=== PATIENT | female | born 1950 | race Caucasian/White ===

== ENCOUNTER → 2019-03-15 | Outpatient (CLI) | payer MEDICARE, OTHER ==
[~2019-03-15] MED LIST: ADVIL200 MG PO; AMBIEN 10MG10 MG PO; ASPIRIN E.C. 8181 MG PO; B-12 100 MCG PO; BIOTIN2500 MCG PO; CAL-CITRATE PLU1 TAB PO; CALCIUM 600MG+D1 TAB PO; CALCIUM CITRATE1 TA1 PO; CARAFATE S1 GM/10 ML PO; CARDI-OMEGA1000 MG PO; CELEXA 20MG20 MG/TAB PO; CEPHALEXIN500 M1 PO; COZAAR100 MG PO; CRESTOR20 MG PO; CURCUMIN95% PO; CYMBALTA 60MG60 MG PO; FISH OIL1 IU PO; FLAX SEED OIL1000 MG PO; HEMP OIL PO; KRILL OIL 5001 EACH PO; LEVOXYL0.05 MG PO; LEVOXYL0.075 MG PO; LEVOXYL0.112 MG PO; MULTI VITAMINS1 TAB PO; NEURONTIN300 MG/CAP PO; NORVASC 10MG10 MG PO; PERCOCET 325 MG1 TA2 PO; PROBIOTIC-MAJOR PO; PROTONIX 40MG T40 MG PO; RESTASIS0.05% IO; SALAGEN 5MG TAB5 MG PO; SENNA8.6 MG PO; SYNTHROID0.075 MG/T PO; ULTRAM 50MG TAB50 MG PO; VITAMIN C500 MG PO; VITAMIN E 400 U4001 PO; XANAX 0.5MG0.5 MG PO; ZANTAC 150MG T150 MG PO; ZOCOR 20MG20 MG PO; ZOFRAN ODT4 MG PO; [UNRECOGNIZED DRUG - OTHER]
[2019-03-15 12:42] VITALS: BP 122/71; PULSE 69
[2019-03-15 14:03] VITALS: BP 144/78; PULSE 59
[2019-03-15 14:11] VITALS: BP 140/74
== END ==
LOC: COL.RAD 12:19
DX: M51.36 Other intervertebral disc degeneration, lumbar region (principal)
CPT/HCPCS: J3301

== ENCOUNTER 2019-05-10 14:30 | Outpatient (RCR) | payer MEDICARE, OTHER | END 2019-05-21 | disposition home or self-care (01) | LOC: WSPT | DX: M46.86 Other specified inflammatory spondylopathies, lumbar region (principal); M47.816 Spondylosis without myelopathy or radiculopathy, lumbar region ==

== ENCOUNTER → 2019-10-05 | Outpatient (CLI) | payer MEDICARE, OTHER | LOC: COL.RAD 14:23 | DX: H57.13 Ocular pain, bilateral (principal); R51 Headache ==

== ENCOUNTER → 2020-02-05 | Outpatient (CLI) | payer MEDICARE, OTHER | LOC: MC.RAD 09:30 | DX: Z12.31 Encounter for screening mammogram for malignant neoplasm of breast (principal) ==

== ENCOUNTER 2020-08-28 14:51 | Outpatient (RCR) | payer MEDICARE, OTHER | END 2020-11-13 07:27 | disposition home or self-care (01) | LOC: WSPT 14:51 | DX: S83.412D Sprain of medial collateral ligament of left knee, subsequent encounter (principal) ==

== ENCOUNTER 2020-11-03 12:25 | Emergency (ER) | payer MEDICARE, OTHER ==
[~2020-11-03] VITALS: Ht 157.5 cm; Wt 69.5 kg
[2020-11-03 13:21] LABS: BASO % 0.7 % (0.0-2.0); EOS # 0.1 (0.0-0.7); GRAN # 1.5 (1.4-6.5); GRAN % 50.1 % (42.2-75.2); LYMPH # 1.2 (1.2-3.4); LYMPH % 38.5 % (20.0-51.0); MEAN CELL VOLUME 91 fl (80.0-100.0); MEAN CORPUSCULAR HEMOGLOBIN 30 pg (27.0-31.0); MEAN CORPUSCULAR HGB CONC 34 g/dl (33.0-37.0); MONO # 0.3 (0.1-0.6); MONO % 8.7 % (1.7-9.3); PLATELET COUNT 237 K/mm3 (130-400); RED BLOOD COUNT 3.95 M/mm3 (4.10-5.30)
[2020-11-03 13:22] LABS: HEMATOCRIT 35.8 % (37.0-47.0)
[2020-11-03 13:34] LABS: ALBUMIN 3.7 gm/dL (3.5-5.0); BILIRUBIN,TOTAL 0.5 mg/dL (0.0-1.0); CALCIUM 8.5 mg/dL (8.4-10.2); CREATININE, serum 0.8 (0.52-1.25); POTASSIUM 4.1 mmol/L (3.4-5.0); TOTAL PROTEIN 6.2 gm/dL (6.4-8.2)
[2020-11-03 15:32] VITALS: BP 134/68; PULSE 78; TEMP 98.4
== END 2020-11-03 15:34 | disposition home or self-care (01) ==
LOC: COL.ER 12:25
PROVIDERS: Nurse Practitioner
DX: R22.42 Localized swelling, mass and lump, left lower limb (principal); I10 Essential (primary) hypertension; M35.00 Sjogren syndrome, unspecified; E07.9 Disorder of thyroid, unspecified; Z87.891 Personal history of nicotine dependence; Z79.899 Other long term (current) drug therapy; Z79.890 Hormone replacement therapy

== ENCOUNTER 2020-11-14 10:45 | Outpatient (RCR) | payer MEDICARE, OTHER | END 2020-11-22 09:13 | disposition home or self-care (01) | LOC: PT.GENESIS 10:45 | DX: M25.562 Pain in left knee (principal) ==

== ENCOUNTER → 2021-05-12 | Outpatient (CLI) | payer MEDICARE, OTHER | LOC: COL.RAD 09:19 | DX: M41.84 Other forms of scoliosis, thoracic region (principal); M48.04 Spinal stenosis, thoracic region ==

== ENCOUNTER 2021-05-21 13:48 | Outpatient (CLI) | payer MEDICARE, OTHER ==
[~2021-05-21] VITALS: Ht 157.5 cm; Wt 66.0 kg
[2021-05-21 14:44] VITALS: BP 118/70; PULSE 54; TEMP 97.8
[2021-05-21] MEDS ORDERED: LYRICA 75MG CAP75 MG PO (15:03)
[2021-05-21] MEDS ORDERED: PLAQUENIL 200M200 MG PO (15:04)
[2021-05-21] MEDS ORDERED: ZOFRAN8 MG PO (15:06)
== END 2021-05-21 15:17 ==
LOC: EUO 13:48
DX: M85.852 Other specified disorders of bone density and structure, left thigh (principal)
CPT/HCPCS: J3489

== ENCOUNTER → 2021-06-04 | Outpatient (CLI) | payer MEDICARE, OTHER ==
[~2021-06-04] MED LIST changes: +LYRICA 75MG CAP75 MG PO; +PLAQUENIL 200M200 MG PO; +ZOFRAN8 MG PO
== END ==
LOC: MC.RAD 10:44
DX: Z12.31 Encounter for screening mammogram for malignant neoplasm of breast (principal)

== ENCOUNTER → 2022-01-29 | Outpatient (CLI) | payer MEDICARE | LOC: COL.RAD 14:15 | DX: M47.816 Spondylosis without myelopathy or radiculopathy, lumbar region (principal); I70.0 Atherosclerosis of aorta ==

== ENCOUNTER → 2022-01-29 | Outpatient (CLI) | payer MEDICARE | LOC: MHCPAIN 12:50 | DX: M51.36 Other intervertebral disc degeneration, lumbar region (principal); M54.59 Other low back pain; M47.816 Spondylosis without myelopathy or radiculopathy, lumbar region; M53.3 Sacrococcygeal disorders, not elsewhere classified | CPT/HCPCS: G0463 ==

== ENCOUNTER → 2022-02-05 | Outpatient (CLI) | payer MEDICARE | LOC: MHCPAIN 10:43 | DX: M53.3 Sacrococcygeal disorders, not elsewhere classified (principal); M47.817 Spondylosis without myelopathy or radiculopathy, lumbosacral region | CPT/HCPCS: J3301 ==

== ENCOUNTER → 2022-02-17 | Outpatient (CLI) | payer MEDICARE | LOC: MHCPAIN 14:22 | DX: M25.562 Pain in left knee (principal); M17.12 Unilateral primary osteoarthritis, left knee | CPT/HCPCS: J3301 ==

== ENCOUNTER → 2022-06-30 | Outpatient (CLI) | payer MEDICARE ==
[~2022-06-30] MED LIST changes: +CYMBALTA 20MG20 MG PO; +EUTHYROX88 MCG PO; +MASON NATURAL2000 IU PO; +NATURAL IRON65 MG; +OMEGA-31 SGL PO; +SENNA-LAX8.6 MG PO
== END ==
LOC: MC.RAD 14:23
DX: Z12.31 Encounter for screening mammogram for malignant neoplasm of breast (principal)

== ENCOUNTER → 2022-07-07 | Outpatient (RCR) | payer MEDICARE | END | disposition home or self-care (01) | LOC: PT.GENESIS | DX: M17.12 Unilateral primary osteoarthritis, left knee (principal) | CPT/HCPCS: G0283-GP ==

== ENCOUNTER 2023-03-03 11:00 | Outpatient (RCR) | payer MEDICARE | END 2023-03-06 | disposition home or self-care (01) | LOC: PT.GENESIS | DX: M25.562 Pain in left knee (principal); Y79.2 Prosthetic and other implants, materials and accessory orthopedic devices associated with adverse incidents ==

== ENCOUNTER 2023-06-09 14:49 | Outpatient (CLI) | payer MEDICARE ==
[~2023-06-09] VITALS: Ht 157.5 cm; Wt 66.8 kg
[2023-06-09 15:30] VITALS: BP 103/69; PULSE 58; TEMP 97.5
== END 2023-06-09 16:13 ==
LOC: EUO 14:49
DX: M85.859 Other specified disorders of bone density and structure, unspecified thigh (principal)
CPT/HCPCS: J3489

== ENCOUNTER → 2023-07-06 | Outpatient (CLI) | payer MEDICARE | LOC: MC.RAD 13:15 | DX: Z12.31 Encounter for screening mammogram for malignant neoplasm of breast (principal) ==

== ENCOUNTER 2024-04-03 14:23 | Outpatient (RCR) | payer MEDICARE | END 2024-04-06 | disposition home or self-care (01) | LOC: PT.GENESIS | DX: T84.023D Instability of internal left knee prosthesis, subsequent encounter (principal); Z96.652 Presence of left artificial knee joint ==

== ENCOUNTER 2024-05-02 13:00 | Outpatient (RCR) | payer MEDICARE | END 2024-05-06 | disposition home or self-care (01) | LOC: PT.GENESIS | DX: T84.023D Instability of internal left knee prosthesis, subsequent encounter (principal); Z96.652 Presence of left artificial knee joint ==